=== PATIENT | female | born 1975 | race Caucasian/White ===

== ENCOUNTER 2020-12-04 05:11 | Emergency (ER) | payer MEDICARE, OTHER ==
[~2020-12-04 05:11] MED LIST: ASPIRIN CHEWABL81 MG PO; AUGMENTIN 875-1 EACH PO; BUSPAR5 MG PO; CLARITIN10 MG PO; FLOMAX 0.4 MG0.4 MG PO; FOLIC ACID20 MG PO; INDERAL LA80 MG PO; KETOROLAC TROME10 M1 PO; LIPITOR20 MG PO; MELATONIN10 M3 PO; METFORMIN HCL500 M3 PO; NORTRIPTYLINE H25 MG PO; TROKENDI XR200 MG PO; ULTRAM50 MG PO; ZESTRIL2.5 MG PO
[2020-12-04 05:46] LABS: BASOPHIL 0.4 % (0-2); EOSINOPHIL 0.9 & (0-5); HCT 46.5 % (37.0-47.0); HGB 15.4 g/dl (12.5-16.0); LYMPHOCYTE 22.7 % (15-48); MCH 29.5 pg (25.0-31.0); MCHC 33.1 g/dL (32.0-36.0); MCV 89.1 fL (78.0-100.0); MONOCYTE 6.3 % (0-12); MPV 10.9 fL (6.0-9.5); NEUTROPHIL 69.3 % (41-80); PLT 308 K/uL (150-400); RBC 5.22 M/uL (4.20-5.40); RDW 12.5 % (11.5-14.0); WBC 9.71 K/uL (4.0-10.5)
[2020-12-04 05:53] LABS: BILIRUBIN 1+ mg/dL (NEGATIVE); BLOOD 2+ Ery/uL (NEGATIVE); CLARITY CLEAR (CLEAR); COLOR YELLOW (YELLOW); GLUCOSE (U) NORMAL (NORMAL); LEUKOCYTES NEGATIVE Leu/uL (NEGATIVE); NITRITE NEGATIVE (NEGATIVE); PROTEIN 1+ mg/dL (NEGATIVE); SPECIFIC GRAVITY >=1.030 (1.001-1.030); UROBILINOGEN 0.2 mg/dL (0.2-1.0)
[2020-12-04 06:03] LABS: BACTERIA 1+; MUCOUS TRACE; SQUAMOUS EPITHELIAL CELLS 20-50
[2020-12-04 06:11] LABS: ALBUMIN 3.8 g/dL (3.4-5.0); BILIRUBIN - TOTAL 0.3 mg/dL (0.2-1.0); BUN/CREAT RATIO (CALC) 16.1 RATIO; CREATININE 1.24 mg/dL (0.51-0.95); GLOBULIN (CALCULATION) 4.4 g/dL; TOTAL PROTEIN 8.2 g/dL (6.4-8.2)
[2020-12-04] MEDS ORDERED: ONDANSETRON ODT4 MG PO (08:53)
[2020-12-04] MEDS ORDERED: FLOMAX 0.4 MG0.4 MG PO (08:53)
[2020-12-04] MEDS ORDERED: NORCO 5-325 TA1 EACH PO (08:53)
[2020-12-04] MEDS ORDERED: MACROBID100 MG PO (08:59)
== END 2020-12-04 09:40 | disposition home or self-care (01) ==
LOC: FER 05:11
PROVIDERS: Emergency Medicine
DX: N13.2 Hydronephrosis with renal and ureteral calculous obstruction (principal); E11.9 Type 2 diabetes mellitus without complications; Z98.890 Other specified postprocedural states; Z88.6 Allergy status to analgesic agent; Z88.5 Allergy status to narcotic agent; Z79.899 Other long term (current) drug therapy; Z79.84 Long term (current) use of oral hypoglycemic drugs
CPT/HCPCS: 36415; 80053; 81001; 83690; 85025; J0696; J1170; J2405; J7030

== ENCOUNTER 2021-08-28 08:23 | Emergency (ER) | payer MEDICARE, OTHER ==
[2021-08-28 09:30] LABS: BASOPHIL 0.4 % (0-2); EOSINOPHIL 3.1 % (0-5); HCT 40.4 % (37.0-47.0); HGB 13.5 g/dl (12.5-16.0); MCH 29.1 pg (25.0-31.0); MCHC 33.4 g/dL (32.0-36.0); MCV 87.1 fL (78.0-100.0); MONOCYTE 5.7 % (0-12); MPV 11.3 fL (6.0-9.5); NEUTROPHIL 72.4 % (41-80); NRBC 0; PLT 229 K/uL (150-400); RBC 4.64 M/uL (4.20-5.40); RDW 13.1 % (11.5-14.0); WBC 7.8 K/uL (4.0-10.5)
[2021-08-28 09:36] LABS: INR 1.1 (0.9-1.2); PROTHROMBIN TIME 13.6 SECONDS (11.8-13.4); PTT 34.4 SECONDS (24.4-34.7)
[2021-08-28 09:46] LABS: ALBUMIN 3.8 g/dL (3.4-5.0); BILIRUBIN - TOTAL 0.5 mg/dL (0.2-1.0); BUN/CREAT RATIO (CALC) 21.1 RATIO; CREATININE 0.71 mg/dL (0.51-0.95); GLOBULIN (CALCULATION) 3.8 g/dL; POTASSIUM 3.9 mmol/L (3.5-5.1); TOTAL PROTEIN 7.6 g/dL (6.4-8.2)
== END 2021-08-28 13:26 | disposition home or self-care (01) ==
LOC: FER 08:23
PROVIDERS: Emergency Medicine
DX: R07.89 Other chest pain (principal); I10 Essential (primary) hypertension; E11.9 Type 2 diabetes mellitus without complications; Z88.5 Allergy status to narcotic agent; Z28.311 Partially vaccinated for COVID-19
CPT/HCPCS: 36415; 71045; 80053; 84484; 85025; 85610; 85730; 93005

== ENCOUNTER → 2021-08-28 | Day surgery (SDC) | payer MEDICARE, OTHER ==
[~2021-08-28] VITALS: Ht 165 cm; Wt 92.0 kg
[~2021-08-28] MED LIST changes: +AIMOVIG AU140 MG/1 M IM; +BACLOFEN10 MG PO; +DICLOFENAC SODI75 MG PO; +ELAVIL25 MG PO; +FLONASE ALLER15.8 ML; +JANUVIA 100MG100 MG PO; +MACROBID100 MG PO; +NORCO 5-325 TA1 EACH PO; +ONDANSETRON ODT4 MG PO; +PANTOPRAZOLE SO40 MG PO; +UBRELVY100 MG PO
[2021-08-28 06:58] LABS: HCG (URINE) SCREEN NEGATIVE (NEGATIVE)
[2021-08-28 07:40] LABS: INR 1.05 (0.9-1.2); PROTHROMBIN TIME 13.1 SECONDS (11.8-13.4); PTT 35.4 SECONDS (24.4-34.7)
--- NOTE | 2021-08-28 08:10 | NUR ---
ANESTHESIA REVIEWED EKGS, AND TALKED WITH PATIENT, PATIENT CLAIMS HAS CHEST TIGHTNESS AND OCCATIONAL SOA WITH EXERTION. 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 DENIES SOA AND TIGHTNESS AT THIS TIME. ANESTHESIA CANCEL CASE FOR TODAY. SUGGESTED TO SEE PRIMARY CARE DRAnais AND TAMPER OPERATOR FOR STRESS TEST BEFORE RESCHEDULE. DISCUSSED WITH PATIENT TO FOLLOW UP WITH PRIMARY AND CARDIOLOGY FOR STRESS TEST. AND NOTIFIED SIMEON BAIRES OF STATUS AND PLAN. IV DCED. PT SENT HOME FOR PRIMARY AND CARDIOLOGY FOLLOW UP.
== END | disposition home or self-care (01) ==
LOC: FAS 05-29 12:00
PROVIDERS: Anesthesiology
DX: M17.11 Unilateral primary osteoarthritis, right knee (principal); E11.9 Type 2 diabetes mellitus without complications; Z53.8 Procedure and treatment not carried out for other reasons; Z88.6 Allergy status to analgesic agent; Z88.5 Allergy status to narcotic agent
CPT/HCPCS: 36415; 84703; 85610; 85730; 86850; 86900; 86901; 93005; J0171; J1885; J2795; J7120